=== PATIENT | female | born 1980 | race Two or more races ===

== ENCOUNTER 2019-10-30 13:05 | Emergency (ER) | payer OTHER ==
[~2019-10-30] VITALS: Ht 172.7 cm; Wt 111.4 kg
[2019-10-30] MEDS ORDERED: DiphenhydrAMINE HCL 25 MG CAPSULE PO ONE (14:15)
[2019-10-30 14:42] VITALS: BP 115/60
== END 2019-10-30 14:43 | disposition home or self-care (01) ==
LOC: EMS 13:09
DX: L25.9 Unspecified contact dermatitis, unspecified cause (principal); Z88.6 Allergy status to analgesic agent

== ENCOUNTER 2019-10-30 19:43 | Emergency (ER) | payer OTHER ==
[~2019-10-30] VITALS: Ht 172.7 cm; Wt 111.4 kg
[2019-10-30] MEDS ORDERED: DiphenhydrAMINE HCL 25 MG CAPSULE PO ONE (21:15)
[2019-10-30] MEDS ORDERED: LORazepam 2 MG/ML VIAL IM ONE (21:15)
[2019-10-30 21:29] VITALS: BP 95/60
== END 2019-10-30 22:00 | disposition home or self-care (01) ==
LOC: EMS 19:44
DX: F15.10 Other stimulant abuse, uncomplicated (principal); F17.210 Nicotine dependence, cigarettes, uncomplicated; Z88.6 Allergy status to analgesic agent
CPT/HCPCS: 96372; 99283; 99406; J2060

== ENCOUNTER 2023-01-09 02:13 | Emergency (ER) | payer OTHER ==
[~2023-01-09] VITALS: Ht 175.3 cm; Wt 98.0 kg
[2023-01-09 02:21] VITALS: BP 126/76; PULSE 92; RESP 17; TEMP 98
[2023-01-09] MEDS ORDERED: TraMADol HCL 50 MG TABLET PO ONE (02:30)
[2023-01-09] MEDS ORDERED: CYCL-448 PO (03:54)
[2023-01-09] MEDS ORDERED: LIDO1ADH63 TP (03:56)
== END 2023-01-09 04:21 | disposition home or self-care (01) ==
LOC: EMS 02:17
DX: G89.29 Other chronic pain (principal); M54.9 Dorsalgia, unspecified; R32 Unspecified urinary incontinence; F17.210 Nicotine dependence, cigarettes, uncomplicated; F15.90 Other stimulant use, unspecified, uncomplicated; Z88.8 Allergy status to other drugs, medicaments and biological substances; Z98.890 Other specified postprocedural states
CPT/HCPCS: 72100; 84703; 99284

== ENCOUNTER 2023-01-28 11:58 | Emergency (ER) | payer OTHER ==
[~2023-01-28] VITALS: Ht 175.3 cm; Wt 109.1 kg
[~2023-01-28 11:58] MED LIST: CEPH-558 PO; CYCL-448 PO; HYDR25TA2 PO; LIDO1ADH63 TP; POTA8TAB72 PO
[2023-01-28 12:29] VITALS: TEMP 97.9
[2023-01-28] MEDS ORDERED: POTASSIUM CHLORIDE 10% 40 MEQ/30 ML LIQUID UDCUP PO ONE (14:15)
[2023-01-28] MEDS ORDERED: FUROSEMIDE 20 MG TABLET PO ONE (14:15)
[2023-01-28 17:26] LABS: BASOPHILS % (AUTO) 0.6 % (0.0-2.0); EOSINOPHILS % (AUTO) 2.4 % (1.0-6.0); HEMATOCRIT 37.1 % (36-46); HEMOGLOBIN 12.3 g/dL (12.0-16.0); LYMPHOCYTES # (AUTO) 1.9 K/uL (1.0-4.8); MEAN CORPUSCULAR HEMOGLOBIN 30.9 pg (26.0-34.0); MEAN CORPUSCULAR HGB CONC 33.3 G/dL (31.0-37.0); MEAN CORPUSCULAR VOLUME 93 fL (80-100); MONOCYTES # (AUTO) 0.4 K/uL (0.1-1.0); MONOCYTES % (AUTO) 6.1 % (2.0-9.0); NEUTROPHILS % (AUTO) 61.9 % (40.0-70.0); PLATELET COUNT (AUTO) 321 K/uL (150-450); RED BLOOD CELL COUNT(AUTO) 3.99 MIL/uL (4.00-5.20); RED CELL DISTRIBUTION WIDTH 12.9 % (11.5-14.5); WHITE BLOOD COUNT (AUTO) 6.4 K/uL (4.5-11.0)
[2023-01-28 17:39] LABS: ANION GAP 7 mmol/L (8-16); CALCIUM, TOTAL 8.9 mg/dL (8.8-10.5); CARBON DIOXIDE 30 mmol/L (22-29); CHLORIDE 105 mmol/L (98-107); CREATININE 0.75 mg/dL (0.60-1.30); GLOMERULAR FILTR. RATE CALC > 60 mL/min (>60); GLUCOSE,RANDOM 141 mg/dL (70-110); POTASSIUM 3.5 mmol/L (3.5-5.1); SODIUM SERUM 142 mmol/L (136-145); UREA NITROGEN, BLOOD 11 mg/dL (7-18)
[2023-01-28 17:45] LABS: ALANINE AMINOTRANSFERASE 29 U/L (12-78); ALBUMIN 3.2 g/dL (3.4-5.0); ALKALINE PHOSPHATASE 73 U/L (46-116); ASPARTATE AMINOTRANSFERASE 21 U/L (15-37); BILIRUBIN,TOTAL 0.3 mg/dL (0.1-1.0); LIPASE 89 U/L (16-77); TOTAL PROTEIN, SERUM 7.2 g/dL (6.4-8.2)
[2023-01-28 17:46] LABS: B-TYPE NATRIURETIC PEPTIDE 10 pg/mL (0-100); TROPONIN I-HIGH SENSITIVITY 8 ng/L (<51)
[2023-01-28 17:47] LABS: LACTIC ACID 1.4 mmol/L (0.4-2.0)
[2023-01-28] MEDS ORDERED: HYDR25TA2 PO (21:27)
[2023-01-28] MEDS ORDERED: POTA8TAB72 PO (21:27)
[2023-01-28] MEDS ORDERED: CEPH-558 PO (21:27)
[2023-01-28 21:56] VITALS: BP 131/70; PULSE 72; RESP 16
== END 2023-01-28 22:11 | disposition home or self-care (01) ==
LOC: EMS 12:02
DX: F15.90 Other stimulant use, unspecified, uncomplicated (principal); R60.0 Localized edema; G89.29 Other chronic pain; M54.9 Dorsalgia, unspecified; F17.210 Nicotine dependence, cigarettes, uncomplicated; Z98.890 Other specified postprocedural states; Z59.00 Homelessness unspecified
CPT/HCPCS: 71045; 80053; 83605; 83690; 83880; 84484; 84703; 85025; 87040; 93005; 99285; 36415-L1; 36415-TC